=== PATIENT | female | born 1970 | race Hispanic/Latino ===

== ENCOUNTER 2021-10-18 23:44 | Emergency (ER) | payer SELFPAY ==
[2021-10-18 23:50] VITALS: BP 101/64; PULSE 77; RESP 16; TEMP 36.5; O2SAT 100
[2021-10-19 00:40] LABS: Basophils Percent Auto 0.4 % (0.2-1.2); Eosinophils Absolute Auto 0.1 K/mm3 (0-0.3); Eosinophils Percent Auto 1.2 % (0-4.4); Hematocrit 34.3 % (37.0-47.0); Hemoglobin 11.4 g/dL (12.0-15.0); Immature Granulocyte Absolute 0.01 K/mm3 (0.00-0.031); Immature Granulocyte Percent A 0.2 % (0-0.5); Lymphocytes Absolute Auto 1.79 K/mm3 (0.9-3.2); Lymphocytes Percent Auto 35.8 % (18.3-44.2); Mean Corpuscular HGB Conc 33.2 g/dl (32-36); Mean Corpuscular Hemoglobin 29.2 pg (26-34); Mean Corpuscular Volume 87.7 fl (80-100); Mean Platelet Volume 10.8 fl (7.4-10.4); Monocytes Absolute Auto 0.3 K/mm3 (0.1-0.6); Monocytes Percent Auto 5.8 % (2.6-8.5); Neutrophils Absolute Auto 2.8 K/mm3 (1.3-6.7); Neutrophils Percent Auto 56.6 % (45.5-73.1); Platelet Count Result 186 k/mm3 (150-375); Red Blood Count 3.91 M/mm3 (4.2-5.4)
--- NOTE | 2021-10-19 01:32 | ED.GENADULT ---
HPI - General Adult General Chief complaint: Unspecified <Eunice Plunkett PA-C - Last Filed: 10/19/21 02:44> Stated complaint: left breast pain x 3 months <MARISA Pitt Last Filed: 10/19/21 02:44> Time Seen by Provider: 10/19/21 00:09 <Eunice Plunkett PA-C - Last Filed: 10/19/21 02:44> Source: patient <MARISA Pitt Last Filed: 10/19/21 02:44> Mode of arrival: ambulatory <MARISA Pitt Last Filed: 10/19/21 02:44> Limitations: no limitations <MARISA Pitt Last Filed: 10/19/21 02:44> History of Present Illness HPI narrative: Patient is a 50-year-old female who presents the ED with report of left breast pain. Patient is primarily Malay-speaking. [employer] meat pumper was used for translation. Patient reports having pain and discoloration to her left breast for the past 2 months. She has been seeing her primary care doctor for this. She has had a negative mammogram, ultrasound showing cysts , and has since been on 2 different courses of antibiotics, Bactrim and Keflex, with no improvement. She has not tried anything for the pain. Does note occasional yellow nipple discharge. Chronic nipple inversion, unchanged. No fevers, chills, nausea, vomiting. <MARISA Pitt Last Filed: 10/19/21 02:44> Review of Systems Review of Systems: CONSTITUTIONAL: Denies fever, chills, or sweats. BREAST: Reports L breast pain. CARDIOVASCULAR: Denies chest pain. RESPIRATORY: Denies dyspnea. GASTROINTESTINAL: Denies nausea, vomiting. SKIN: Reports area of discoloration to the left breast, below nipple. <MARISA Pitt Last Filed: 10/19/21 02:44> All systems reviewed & are unremarkable except as noted in HPI and below <MARISA Pitt Last Filed: 10/19/21 02:44> [facility] Past Medical History Medical History: Medical History (Updated 10/19/21 @ 02:37 by Eunice Plunkett PA-C) No pertinent past medical history <Eunice Plunkett PA-C - Last Filed: 10/19/21 02:44> Surgical History Surgical History: Surgical History (Updated 10/19/21 @ 02:37 by Eunice Plunkett PA-C) No pertinent past surgical history <Eunice Plunkett PA-C - Last Filed: 10/19/21 02:44> Social History Social History: Social History (Updated 10/19/21 @ 02:37 by Eunice Plunkett PA-C) Smoking status: Never smoker <Eunice Plunkett PA-C - Last Filed: 10/19/21 02:44> Exam Narrative: GENERAL: Well appearing, well-nourished, non-toxic, in no acute distress. HEAD: Normocephalic, atraumatic. NECK: Supple. No adenopathy, no masses. BREAST: Inverted nipples bilaterally, which patient reports is chronic. No nipple discharge. Irregular oval shaped area of hyperpigmented skin, wrinkling of skin, discoloration to left breast, just below nipple and extending laterally. Underlying induration and tenderness. Induration extends further laterally than discoloration. No fluctuance appreciated. No redness or warmth of L breast. No peau d'orange changes. No axillary lymphadenopathy appreciated. No discoloration/tenderness to right breast. RESPIRATORY: Airway patent, respirations nonlabored. Clear to auscultation bilaterally, no rales, rhonchi, wheezing. CARDIOVASCULAR: Regular rate and rhythm without murmurs, rubs, or gallops. Peripheral pulses 2+ and equal bilaterally. MUSCULOSKELETAL: Moves all extremities. Strength/ROM intact without gross deformities. SKIN: Warm, dry, normal color. No rashes. NEURO: A&O X3. Speech clear. Cranial nerves II-XII grossly intact. Steady gait. No ataxic movements. PSYCHIATRIC: Appropriate mood and affect. Normal interaction. 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 Patient comes in secondary to some discomfort of her left breast. She found to course of antibiotics. She is already had a mammogram as well as an ultrasound done she states the ultrasound sh
[2021-10-19] MEDS: IBUPROFEN 600 MG TABLET PO (02:00)
[2021-10-19 02:06] VITALS: BP 100/55; PULSE 70; RESP 16; O2SAT 99
== END 2021-10-19 02:07 | disposition home or self-care (01) ==
PROVIDERS: Physician Assistant; Emergency Provider Emergency Medicine
DX: N64.4 Mastodynia (principal); N64.51 Induration of breast
CPT/HCPCS: 36415; 85025; 99283; A9270

== ENCOUNTER 2021-10-29 01:38 | Day surgery (SDC) | payer SELFPAY ==
--- NOTE | 2021-10-25 10:53 | PC.NURSE ---
Report to the Outpatient Waiting Room, entrance under the green pavilion located off [facility], at time _0600 on date _10/29/21 . OR Time: _729 . - You and your visitor will be asked to self-screen and do not enter if you have any COVID symptoms. - Only one visitor and NO children visitors are allowed at this time. - The patient visitor is requested to leave or wait in car when not with patient due to restrictions. - A mask is required within the hospital. Patients may have clear liquids (water, carbonated beverages, clear teas, apple juice) until 3 hours prior to surgery with a maximum of 20 ounces. - No food from midnight until time of surgery - Infants may have breast milk until 4 hours before surgery, infant formula 6 hours prior to surgery. - Children will be allowed to drink immediately following surgery. If applicable, please bring a bottle or sippy cup to assist with drinking. Juice, water, soda, and popsicles are readily available. For infants on formula, please bring formula the day of surgery. Pacifiers are allowed. Take the following medications with a SIP of water the morning of surgery: NONE Medications to discontinue per physician NONE Date to take last dose Please no make-up, nail micronesian, hairspray, perfume, deodorant, or body powder the day of surgery. No jewelry (including any body piercings) or valuables the day of surgery, leave them at home. Please take a shower or bath the night before, or the morning of, surgery with an antibacterial soap. Wear comfortable, loose fitting clothing. Children are encouraged to wear pajamas. - Jewelry must be removed prior to entering the operating room. Rings and piercings that are not removed may be cut off. - The hospital will not accept responsibility for valuables. - Please leave all valuables, including medications, at home the day of surgery. If you are going home after surgery, a licensed pack train driver must drive you home. - NO public transportation without another adult. - We recommend that an adult stay with you for 24 hours following discharge. - We also recommend that you do not drive, make important decision, drink alcoholic beverages, or take any drugs that were not prescribed by your health care provider for at least 24 hours after your discharge time. For Pediatric surgeries, we recommend two adults accompany the child home (only one inside the building at this time). Follow any additional instructions given to you from your surgeon. BRANCH SERVICE REPRESENTATIVE [employer] #[id number] USED FOR PRE OP INSTUCTIONS If you or anyone in your household have experienced Covid symptoms in the past week, please notify your surgeon or the nurse liaison at the phone number below for possible testing. instructions given to __PATIENT and asked if any additional questions and then verbalized understanding. Patient advised to call surgeon office or pre surgery nurse liaison [phone] if any additional questions.
[2021-10-25 11:10] VITALS: BP 105/67; PULSE 65; RESP 18; TEMP 36.5; O2SAT 100; BMI 25.6
[2021-10-29 06:34] VITALS: BP 121/57; PULSE 72; RESP 18; TEMP 35.9; O2SAT 100
[2021-10-29] MEDS: ACETAMINOPHEN 500 MG TABLET 1000 MG PO (06:46)
[2021-10-29] MEDS: LACTATED RINGERS 1,000 ML 30 ML IV CONT ×2 (06:50→08:30)
[2021-10-29] MEDS: KETOROLAC 15 MG/ML VIAL (*BKC) IV PUSH (06:52)
--- NOTE | 2021-10-29 07:02 | P.PNAN_ITS ---
Anes - Initial Pre Proc Eval Procedure: Operation Date: 10/29/21 07:30 Proposed Procedures p Complex Incision and Drainage Left Breast Abscess - Hermila Hernandez MD Date/Time: 10/29/21 07:02 Surgeon: Hermila Hernandez MD Pre Op Diagnosis: left breast abscess Patient Data Age: 50 Gender: F Height: 1.42 m Weight: 52.1 kg Last Vital Signs Temp 36.5 C 10/25/21 11:10 Pulse 65 10/25/21 11:10 Resp 18 10/25/21 11:10 BP 105/67 10/25/21 11:10 Pulse Ox 100 10/25/21 11:10 O2 Del Method Room Air 10/25/21 11:10 Allergies Allergy/AdvReac Type Severity Reaction Status Date / Time No Known Allergies Allergy Verified 10/29/21 07:00 Home Medications Medication Instructions Recorded Confirmed Type amoxicillin 875 mg-potassium 1 tablet PO BID 10 days #20 tabs 10/24/21 10/29/21 Rx clavulanate 125 mg tablet Patient hx anesthesia problems: none Family hx anesthesia problems: none Results Review: All pre-operative results and documents have been reviewed as part of the pre- operative evaluation. [facility] Past Medical History Medical History No pertinent past medical history Surgical History Surgical History No pertinent past surgical history Social History Social History (Updated 10/24/21 @ 09:48 by DARREN Pineda) Social History: no caffeine Smoking status: Never smoker Alcohol intake: never Living arrangements: with family Additional living arrangements comments: Patient is . Gender identity (if verbalized by the patient): Female Spiritual care concerns: No Anes - Eval Final PreProcedure Day of Procedure 10/29/21 07:02 Patient weight: normal Heart: regular rate and rhythm Lungs: clear to auscultation and normal air movement Airway: Mallampati scale class II Neurological: alert and oriented Last oral intake: >/= 8 hours ASA classification: I Emergent: no Anesthetic plan: proceed Anesthesia type and monitoring: general GIVS Results Review: All pre-operative results and documents have been reviewed as part of the pre-operative evaluation. Informed Consent: The patient's anesthetic plan and its attendant risks and benefits were discussed with the patient/family/POA. Questions were solicited and answers provided to the satisfaction of the patient/family/POA.
--- NOTE | 2021-10-29 07:09 | SUR.PREOP ---
[id number] INLAW HERE TO ASSIST WITH INTERPRETTING
--- NOTE | 2021-10-29 07:20 | WPDHPUPDATE1 ---
History and Physical Update Update Date/Time: 10/29/21 07:20 History and Physical has been reviewed, including an updated exam of the patient. There are NO changes in the patient's condition. Risks, benefits, and alternatives have been discussed and questions answered. Patient agrees to proceed with procedure.
[2021-10-29] MEDS: ceFAZolin 2 GM/D5W 50 ML 2 GM/50 ML BAG IVPB (07:30)
--- NOTE | 2021-10-29 08:02 | W.PM.PROC2 ---
Procedure Note - Detailed Date of Procedure 10/29/21 Pre-op Diagnosis left breast abscess Post-op Diagnosis Same Procedure Performed Complex incision and drainage left breast abscess measuring approximate 6 x 4 cm with surrounding induration Surgeon Hermila Hernandez MD Anesthesia MAC and Local Indications 50-year-old female presenting to the office with chronic left breast abscess Findings 6 x 4 cm left breast abscess in the infra areolar region Description of Procedure The patient was taken to the operating room placed in the supine position. After adequate of MAC anesthesia, the patient was prepped and draped in the normal sterile fashion. A time-out was then done to verify the patient's identity, as well as the procedure being performed. I began by localizing this area in the infra areolar portion of the left breast. This abscess was noted to extend laterally from the central infra areolar region and measured approximately 6 x 4 cm. There was surrounding induration as well. Once the area was locally anesthetized, I made an incision over the most fluctuant area of the abscess. Immediately a gush of purulent drainage was noted. The skin overlying this area was noted to be quite friable and opened up as well. I then used a hemostat to bluntly dissect around this cavity which measured approximately 6 x 4 cm and was located within the subcutaneous cavity of the breast tissue. Once completely open and drained, I packed the area with 1 in iodoform to keep it open and draining. Sterile dressing was then placed. The patient tolerated the procedure well and was alert and awake in the operating room postop. She was sent to the recovery room in stable condition. Estimated Blood Loss 5 Packing Yes Pathology None sent Complications No immediate complications Condition Stable Disposition PACU [facility] Billing Surgery - Charge Forward: Surgery Billing
[2021-10-29 08:03] VITALS: BP 79/43; PULSE 73; RESP 16; O2SAT 98
[2021-10-29 08:33] VITALS: BP 87/52; PULSE 66; RESP 16; O2SAT 100
[2021-10-29 09:03] VITALS: BP 88/64; PULSE 60; RESP 16
[2021-10-29 09:20] VITALS: BP 95/55; PULSE 66; RESP 16
--- NOTE | 2021-10-29 09:56 | SUR.PHASEII ---
STRATUS WAS USED FOR INSTRUCTIONS AND COMUNICATION. PT HAD NO PAIN, NO NAUSEA. PT WAS READY AND WAITING FOR RIDE AT 0915. DR STERN HAD CALLED SON IN LAW ABOUT WOUND CARE INSTRUCTIONS.
== END 2021-10-29 09:40 | disposition home or self-care (01) ==
PROVIDERS: PCP Registered Nurse; Visit Provider Surgery
PROC: (CPT 10061; principal; 2021-10-29 07:30)
DX: N61.1 Abscess of the breast and nipple (principal)
CPT/HCPCS: 10061; A9270; J0690; J1885; J2250; J2405; J2704; J3010; J7120

== ENCOUNTER 2021-11-03 08:47 | Emergency (ER) | payer OTHER, SELFPAY ==
[2021-11-03 08:53] VITALS: BP 104/53; PULSE 62; RESP 20; TEMP 36.4; O2SAT 99
[2021-11-03 10:44] LABS: Basophils Percent Auto 0.2 % (0.2-1.2); Eosinophils Percent Auto 0.7 % (0-4.4); Hematocrit 37.9 % (37.0-47.0); Hemoglobin 12.3 g/dL (12.0-15.0); Immature Granulocyte Absolute 0.01 K/mm3 (0.00-0.031); Immature Granulocyte Percent A 0.2 % (0-0.5); Lymphocytes Absolute Auto 1.71 K/mm3 (0.9-3.2); Lymphocytes Percent Auto 29.5 % (18.3-44.2); Mean Corpuscular HGB Conc 32.5 g/dl (32-36); Mean Corpuscular Hemoglobin 28.7 pg (26-34); Mean Corpuscular Volume 88.3 fl (80-100); Mean Platelet Volume 10.4 fl (7.4-10.4); Monocytes Absolute Auto 0.2 K/mm3 (0.1-0.6); Monocytes Percent Auto 3.6 % (2.6-8.5); Neutrophils Absolute Auto 3.8 K/mm3 (1.3-6.7); Neutrophils Percent Auto 65.8 % (45.5-73.1); Platelet Count Result 204 k/mm3 (150-375); Red Blood Count 4.29 M/mm3 (4.2-5.4); Red Cell Distribution Width 13.1 % (11.5-14.5); White Blood Count 5.8 K/mm3 (4.5-10.0)
[2021-11-03 10:46] VITALS: BP 102/77; PULSE 65; RESP 18; O2SAT 97
[2021-11-03 10:59] LABS: Anion Gap 9 mmol/L (8-16); Blood Urea Nitrogen 9 mg/dL (7-17); Calcium 8.9 mg/dL (8.4-10.2); Carbon Dioxide 29 mmol/L (22-30); Chloride 102 mmol/L (98-107); Estimated CRCL calculation 82 ml/min; Estimated Glomerular Filt Rate > 60; Glucose 96 mg/dL (65-110); Potassium 4.1 mmol/L (3.4-5.0); Sodium 140 mmol/L (137-145)
[2021-11-03 13:30] VITALS: BP 129/82; PULSE 84; RESP 16; O2SAT 99
--- NOTE | 2021-11-03 14:09 | ED.WOUNDLAC ---
HPI - Wound/Laceration General Chief Complaint: Wound/Laceration Stated Complaint: something is coming out of her surg. wound Time Seen by Provider: 11/03/21 10:30 History of Present Illness HPI narrative: Patient is a 50-year-old female who presents ER status post having her breast I&D. Left breast around the nipple. Was packed with 1 inch gauze by general surgery. Patient denies any new pain but has noticed discharge and does not know what to do with it. She is unsure when she is supposed to follow-up with general surgery. No new fevers or chills No increased tenderness to her breast. Related Data Allergies Allergy/AdvReac Type Severity Reaction Status Date / Time No Known Allergies Allergy Verified 10/29/21 07:00 Review of Systems Review of Systems: All systems reviewed & are unremarkable except as noted in HPI and below Constitutional: Constitutional: Denies chills and Denies fever(s) Cardiovascular: Cardiovascular: Denies chest pain Respiratory: Respiratory: Denies cough and Denies dyspnea Integumentary/Breasts: Skin/Breast: Denies erythema and Denies rash Comments: Open wound left breast, yellow drainage that is clear PMFSH Past Medical History Medical History No pertinent past medical history Surgical History Surgical History No pertinent past surgical history Social History Social History (Updated 10/24/21 @ 09:48 by DARREN Pineda) Social History: no caffeine Smoking status: Never smoker Alcohol intake: never Additional living arrangements comments: Patient is . Gender identity (if verbalized by the patient): Female Spiritual care concerns: No Exam Narrative: GENERAL: Well-appearing, well-nourished, and in no acute distress. HEAD: Normocephalic, atraumatic. CHEST: Clear to auscultation. No respiratory distress. HEART: Regular rate and rhythm. Normal peripheral pulses. Breast: Left breast with healing area of incision and drainage inferior lateral aspect of the nipple. No surrounding cellulitis and no drainage. Packing in place. EXTREMITIES: Normal range of motion. No edema. SKIN: Warm, dry, no rash. PSYCH: Normal mood and affect. Course Course Emergency Course: Patient resting comfortably. Discussed case with Dr. Manzo. Recommends exchanging packing and teaching patient how to pack her breast and that she should be changing packing every 2 days. She is to follow-up with Dr. Hernandez. Nursing staff has packed the breast. Vital Signs Vital signs: Vital Signs Temperature 97.5 F L 11/03/21 08:53 Pulse Rate 62 11/03/21 08:53 Respiratory Rate 20 11/03/21 08:53 Blood Pressure 104/53 L 11/03/21 08:53 Pulse Oximetry 99 11/03/21 08:53 Oxygen Delivery Room Air 11/03/21 08:53 Temperature 97.5 F L 11/03/21 08:53 Pulse Rate 65 11/03/21 10:46 Respiratory Rate 18 11/03/21 10:46 Blood Pressure 102/77 11/03/21 10:46 Pulse Oximetry 97 11/03/21 10:46 Oxygen Delivery Room Air 11/03/21 08:53 MDM - Wound/Laceration Lab Data Result diagrams: 11/03/21 10:41 11/03/21 10:41 Labs: Lab Results 11/03/21 11/03/21 Range/Units 10:41 10:41 WBC 5.8 (4.5-10.0) K/mm3 RBC 4.29 (4.2-5.4) M/mm3 Hgb 12.3 (12.0-15.0) g/dL Hct 37.9 (37.0-47.0) % MCV 88.3 (80-100) fl MCH 28.7 (26-34) pg MCHC 32.5 (32-36) g/dl RDW 13.1 (11.5-14.5) % Plt Count 204 (150-375) k/mm3 MPV 10.4 (7.4-10.4) fl Immature Gran % (Auto) 0.2 (0-0.5) % Neut % (Auto) 65.8 (45.5-73.1) % Lymph % (Auto) 29.5 (18.3-44.2) % Ross % (Auto) 3.6 (2.6-8.5) % Eos % (Auto) 0.7 (0-4.4) % Baso % (Auto) 0.2 (0.2-1.2) % Lymph # (Auto) 1.71 (0.9-3.2) K/mm3 Ross # (Auto) 0.2 (0.1-0.6) K/mm3 Eos # (Auto) 0.0 (0-0.3) K/mm3 Baso # (Auto) 0.0 (0.0-0.1) K/
== END 2021-11-03 14:30 | disposition home or self-care (01) ==
PROVIDERS: Emergency Provider Emergency Medicine; PCP Registered Nurse; Referring Provider Surgery
DX: Z48.01 Encounter for change or removal of surgical wound dressing (principal)
CPT/HCPCS: 36415; 80048; 85025; 99283; L0140

== ENCOUNTER 2021-11-28 12:21 | Emergency (ER) | payer OTHER, SELFPAY ==
--- NOTE | ~2021-11-28 | US_ITS ---
EXAMINATION: US breast LT limited HISTORY: Left breast pain at the 6:00 location in the nipple, recent surgery TECHNIQUE: Limited left breast ultrasound was performed. FINDINGS: There is a 1.8 x 1.0 x 0.8 cm hypoechoic mass with posterior acoustic enhancement and no in ternal vascularity at the 6:00 location near the nipple corresponding to the palpable abnormality of concern. IMPRESSION: Given history of recent surgery, ultrasound findings are consistent with phlegmon versus early absces s corresponding to the patient's left breast pain. BI-RADS Category 2: Benign finding(s). Reviewed, dictated and finalized at location A. IMPRESSION: Given history of recent surgery, ultrasound findings are consistent with phlegm on versus early abscess corresponding to the patient's left breast pain. BI-RADS Category 2: Benign finding(s).
[2021-11-28 12:47] VITALS: BP 103/50; PULSE 71; RESP 16; TEMP 36.4; O2SAT 100
[2021-11-28 16:48] LABS: Basophils Percent Auto 0.3 % (0.2-1.2); Eosinophils Absolute Auto 0.1 K/mm3 (0-0.3); Eosinophils Percent Auto 0.9 % (0-4.4); Hematocrit 38.1 % (37.0-47.0); Hemoglobin 12.6 g/dL (12.0-15.0); Immature Granulocyte Absolute 0.01 K/mm3 (0.00-0.031); Immature Granulocyte Percent A 0.2 % (0-0.5); Lymphocytes Absolute Auto 2.18 K/mm3 (0.9-3.2); Lymphocytes Percent Auto 37.9 % (18.3-44.2); Mean Corpuscular HGB Conc 33.1 g/dl (32-36); Mean Corpuscular Hemoglobin 29.4 pg (26-34); Mean Corpuscular Volume 88.8 fl (80-100); Monocytes Absolute Auto 0.3 K/mm3 (0.1-0.6); Monocytes Percent Auto 5.4 % (2.6-8.5); Neutrophils Absolute Auto 3.2 K/mm3 (1.3-6.7); Neutrophils Percent Auto 55.3 % (45.5-73.1); Platelet Count Result 193 k/mm3 (150-375); Red Blood Count 4.29 M/mm3 (4.2-5.4); Red Cell Distribution Width 13.4 % (11.5-14.5); White Blood Count 5.8 K/mm3 (4.5-10.0)
[2021-11-28 17:02] LABS: Alanine Aminotransferase 33 U/L (6-35); Albumin Level 4.5 g/dL (3.5-5.1); Alkaline Phosphatase 128 U/L (38-126); Anion Gap 10 mmol/L (8-16); Aspartate Amino Transferase 30 U/L (14-36); Bilirubin,Total 0.3 mg/dL (0.2-1.3); Blood Urea Nitrogen 8 mg/dL (7-17); Calcium 8.9 mg/dL (8.4-10.2); Carbon Dioxide 23 mmol/L (22-30); Chloride 107 mmol/L (98-107); Estimated Glomerular Filt Rate > 60; Glucose 94 mg/dL (65-110); Potassium 3.6 mmol/L (3.4-5.0); Sodium 140 mmol/L (137-145)
--- NOTE | 2021-11-28 17:24 | ED.GENADULT ---
HPI - General Adult General Chief complaint: Wound/Laceration Stated complaint: L. Breast surgery site bleeding. Time Seen by Provider: 11/28/21 15:05 Source: RN notes reviewed History of Present Illness HPI narrative: Patient presents emergency department from home for left breast pain. Patient states she had surgery on her left breast approximately [address] Hernandez to have a cyst removed states it has been healing well and she returned to work approximately week and a half ago and the wound had opened up she states that she is been having intermittent drainage and bleeding from the wound states the area is tender to palpation she denies any fevers or chills chest pain shortness of breath or any other symptoms Patient is primarily Irish-speaking and [employer] was used for interpretation Related Data Allergies Allergy/AdvReac Type Severity Reaction Status Date / Time No Known Allergies Allergy Verified 11/13/21 14:53 Review of Systems Review of Systems: Gen.: Denies fevers or chills ENT: Denies congestion Respiratory: Denies shortness of breath or cough CV: Denies chest pain GI: Denies abdominal pain nausea, emesis denies burning, urgency, frequency or hematuria Musculoskeletal: Denies joint pain Neuro: Denies SANTANA Skin: See HPI Except as documented, all other systems reviewed and negative [facility] Past Medical History Medical History No pertinent past medical history Surgical History Surgical History History of incision and drainage Left breast abscess on 10/29/21. No pertinent past surgical history Social History Social History Social History: no caffeine Smoking status: Never smoker Alcohol intake: never Additional living arrangements comments: Patient is . Gender identity (if verbalized by the patient): Female Spiritual care concerns: No Exam Narrative: APPEARANCE: No acute distress, nontoxic, resting in bed EYES: EOMI HEENT: Normocephalic, atraumatic, OMM RESPIRATORY: No respiratory distress Clear to auscultation bilaterally with no rhonchi wheezing or rales. CARDIOVASCULAR: Regular rate and rhythm without murmurs rubs or gallops. ABDOMINAL: Soft, nontender, nondistended, MUSCULOSKELETAl: Moves all extremities. NEURO: Awake and alert. Following commands, speech normal, no focal deficits SKIN:: Warm, dry. Left breast has a wound present inferior to the nipple the medial aspect of the wound is mildly open with mild bleeding and serous drainage there is tenderness inferiorly and laterally to this with mild overlying erythema and firmness no fluctuance PSYCHIATRIC: Normal affect/mood, Course Course Emergency Course: Discussed with Dr. Hernandez in [place] will come to see patient in the ER SEQUINS SPOOLER [place] came to see patient and recommends breast ultrasound : Discussed Dr. Hernandez results of breast ultrasound discussed lab work at this time recommends Keflex patient be discharged and follow-up as an outpatient Discussed with patient results of workup and diagnosis. Discussed need for follow-up with primary care, proper use of medication, and reasons to return to the emergency department. Patient understands and agrees to current treatment plan Vital Signs Vital signs: Vital Signs Temperature 97.6 F 11/28/21 12:47 Pulse Rate 71 11/28/21 12:47 Respiratory Rate 16 11/28/21 12:47 Blood Pressure 103/50 L 11/28/21 12:47 Pulse Oximetry 100 11/28/21 12:47 Oxygen Delivery Room Air 11/28/21 12:47 Temperature 97.6 F 11/28/21 12:47 Pulse Rate 71 11/28/21 12:47 Respiratory Rate 16 11/28/21 12:47 Blood Pressure 103/50 L 11/28/21 12:47 Pulse Oximetry 100 11/28/21 12:47 Oxygen Delivery Room Air 11/28/21 12:47 Medical Decision Making Vital Signs Vital Signs: Vital Signs Temperature
[2021-11-28] MEDS: CEPHALEXIN 500 MG CAPSULE PO (18:15)
== END 2021-11-28 18:30 | disposition home or self-care (01) ==
PROVIDERS: Emergency Provider Emergency Medicine; PCP Registered Nurse
DX: T81.41XA Infection following a procedure, superficial incisional surgical site, initial encounter (principal); N61.1 Abscess of the breast and nipple
CPT/HCPCS: 36415; 76642; 80053; 85025; 87070; 87075; 87077; 87186; 87205; 99284; A9270

== ENCOUNTER 2022-03-08 13:46 | Outpatient (CLI) | payer OTHER, SELFPAY ==
--- NOTE | ~2022-03-08 | MMUS_ITS ---
EXAMINATION: MM diagnostic khushi BI w jessika, US breast LT complete HISTORY: Left breast abscess, lump follow-up TECHNIQUE: ML, MLO and CC 3-D tomosynthesis images of both breasts were performed and synthetic 2-D i mages were generated. Bilateral rotated lateral CC views. ..............CAD analysis was submitted an d interpreted. High resolution complete left breast ultrasound examination including all 4 quadrants and subareolar area was performed. COMPARISON: 11/28/2021 Limited left breast ultrasound BREAST PARENCHYMAL COMPOSITION: The breasts are heterogeneously dense, which may obscure small masses . FINDINGS: MAMMOGRAPHIC FINDINGS: No suspicious mass or architectural distortion, malignant calcification, skin thickening or retractio n is detected. ULTRASOUND: There is interval resolution of extensive abnormal hypoechogenicity of the left breast at 6:00 near the nipple since 11/28/2021. At 4:00 2 cm from the nipple there is a parallel circumscribed approximately 8.8 x 4.4 x 6.9 mm hypoe choic lesion and nearby parallel circumscribed 3.5 x 6.2 x 5.9 mm hypoechoic lesion. At 5:00 1 cm from the nipple there is a parallel circumscribed 7.9 x 5.0 x 6.4 mm complex benign-appe aring lesion. In the subareolar area there is a complex parallel circumscribed 2.6 x 5.5 x 9.7 mm lesion with throu gh transmission and posterior enhancement, no internal vascularity. No suspicious mass or shadowing is evident. IMPRESSION: 1. Benign findings 2. Routine annual mammographic screening is recommended BI-RADS Category 2: Benign finding(s). Reviewed, dictated and finalized at location A. Y HOST IMPRESSION: 1. Benign findings 2. Routine annual mammographic screening is recommended BI-RADS Category 2: Benign finding(s).
== END 2022-03-08 13:47 | disposition home or self-care (01) ==
LOC: ANHIMG 13:50
PROVIDERS: PCP Registered Nurse; Visit Provider Registered Nurse
DX: N63.20 Unspecified lump in the left breast, unspecified quadrant (principal); N61.1 Abscess of the breast and nipple
CPT/HCPCS: 76641; 77062; 77066; G0279